=== PATIENT | male | born 1970 | race Caucasian/White ===

== ENCOUNTER 2017-03-07 10:33 | Emergency (ER) | payer BC ==
[2017-03-07 10:46] VITALS: BP 109/74
--- NOTE | 2017-03-07 12:20 | ED ---
Lower Extremity - HPI Summary HPI Summary: 46 male sent over from [facility] and presents with complaint of left calf pain x 1 week. Denies previous DVT but notes to left leg swelling x 1 year that is on and off however with no pain. An US was performed at that time and showed no evidence of DVT. Denies new leg swelling at this time but states he has pain in the medial side of the left calf. States he can feel a deformity. Pain kept him up last night. Took ibuprofen at 2am this morning, for the first time and symptoms improved significantly. Pain is not better or worse with standing. Patient is a non-smoker and is sedentary in his job. 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 Denies chest pain or pressure or SOB. Denies recent travel or immunocompromised state. He is otherwise healthy and takes no medications, no PMHx. No known recent trauma or injury. - History of Current Complaint Chief Complaint: EDExtremityLower Stated Complaint: LT LEG PAIN Time Seen by Provider: 03/07/17 10:49 Hx Obtained From: Patient Mechanism Of Injury: Unknown Onset of Pain: Days - 6 days ago Onset/Duration: Days Severity Initially: Moderate Severity Currently: Mild Pain Intensity: 4 Pain Scale Used: 0-10 Numeric Timing: Constant Location: Is Discrete @ - left lower medial calf Character Of Pain: Aching Associated Signs And Symptoms: Positive: Swelling, Other - warmth to area of medial calf where pain is located Aggravating Factor(s): Nothing Alleviating Factor(s): OTC Meds - ibuprofen Able to Bear Weight: Yes - Allergies/Home Medications Allergies/Adverse Reactions: Allergies Allergy/AdvReac Type Severity Reaction Status Date / Time No Known Allergies Allergy Verified 03/07/17 09:51 PMH/Surg Hx/FS Hx/Imm Hx Endocrine/Hematology History: Denies: Hx Diabetes Cardiovascular History: Denies: Hx Hypertension Respiratory History: Denies: Hx Asthma - Surgical History Surgery Procedure, Year, and Place: none - Immunization History Immunizations Up to Date: Yes Infectious Disease History: No Infectious Disease History: Denies: Traveled Outside the [place] in Last 30 Days - Family History Known Family History: Positive: None - mother possible DVT - Social History Alcohol Use: None Substance Use Type: Reports: None Smoking Status (MU): Never Smoked Tobacco Have You Smoked in the Last Year: No Review of Systems Constitutional: Negative Cardiovascular: Negative Respiratory: Negative Gastrointestinal: Negative Positive: Arthralgia, Myalgia, Edema - left lower leg Skin: Negative Neurological: Negative All Other Systems Reviewed And Are Negative: Yes Physical Exam Triage Information Reviewed: Yes Vital Signs On Initial Exam: Initial Vitals Temp Pulse Resp BP Pulse Ox 96.5 F 66 20 109/74 100 03/07/17 10:43 03/07/17 10:43 03/07/17 10:43 03/07/17 10:43 03/07/17 10:43 Vital Signs Reviewed: Yes Appearance: Positive: Well-Appearing, No Pain Distress, Well-Nourished Skin: Positive: Warm, Skin Color Reflects Adequate Perfusion, Dry, Other - hot to touch of left medial lower calf no erythema or ecchymosis noted. no obvious deformity. edema of left lower calf 40cm compared to right calf 38cm. no pitting edema. tender to palpation of medial lower calf. no open wounds or signs of infection Head/Face: Positive: Normal Head/Face Inspection Eyes: Positive: Normal ENT: Positive: Normal ENT inspection, Hearing grossly normal Neck: Positive: Supple, Nontender, No Lymphadenopathy Respiratory/Lung Sounds: Positive: Clear to Auscultation, Breath Sounds Present. Negative: Decreased Breath Sounds, Rales, Rhonchi, Stridor, Tracheal Deviation, Wheezes Cardiovascular: Positive: Normal, RRR, Pulses are Symmetrical in both Upper and Lower Extremities - 2+ pedal b/l, Leg Edema Left. Negative: Murmur, Rub, Leg Edema Right Abdomen Description: Positive: Nontender, Soft Bowel Sounds: Positive: Present Musculoskeletal: Positive: Normal, Strength/ROM Intact, Pain @ - left medial calf on palpation, Edema Left - 40cm on left calf compared to 38cm on right calf. no pitting edema, only edema of medial calf, Other - no crepitus, step off or bony tenderness. Negative: Limited @, Interruption @ Neurological: Positive: Normal, Sensory/Motor Intact - sensation intact and normal, Alert, Oriented to Person Place, Time, CN Intact II-III, Reflexes Intact , NV Bundle Intact Distally, Normal Gait Psychiatric: Positive: Normal AVPU Assessment: Alert Diagnostics - Vital Signs Vital Signs Temp Pulse Resp BP Pulse Ox 03/07/17 10:46 97.0 F 75 20 109/74 100 03/07/17 10:43 96.5 F 66 20 109/74 100 - Laboratory Lab Statement: Any lab studies that have been ordered have been reviewed, and results considered in the medical decision making process. - Ultrasound No standard instances Ultrasound Interpretation: Positive (See Comments) - Bilaterally the common femoral veins appear patent and compressible. Left proximal greater saphenous vein, proximal deep femoral vein, femoral vein, popliteal vein, posterior tibial veins and peroneal veins appear patent and compressible. There is thrombosis of the left greater saphenous vein in the calf likely representing superficial venous thrombosis Ultrasound Interpretation Completed By: Radiologist Lower Extremity Course/Dx - Course Course Of Treatment: patient took ibuprofen before arrival which gave him significant relief. U/S did show superficial thrombophlebitis of great saphenous vein. After research and speaking with Dr Gonsalves and patient about treatment for this condition it was decided to continue NSAIDs at this time as patient has limited risk factors for DVT. He is otherwise a healthy yan. Chronic lower leg edema requires a further work up. Will being NSAIDs treatment and follow up with his PCP to decide if antiocoagulants should be started and for repeat U/S and further work up for the cause of his condition. Patient was educated on worsening signs and symptoms extensively and to return if any occur or symptoms persist. Refrain from being sedentary, stretch and ambulate, elevate and cool compresses. Follow up PCP. - Diagnoses Differential Diagnosis/HQI/PQRI: Positive: Compartment Syndrome, Contusion, DVT , Sprain, Strain, Tendonitis, Tenosynovitis, Other Provider Diagnoses: Acute superficial venous thrombosis of left lower extremity - Physician Notifications Discussed Care Of Patient With: Dr Gonsalves about treatment options Discharge - Discharge Plan Condition: Stable Disposition: HOME Patient Education Materials: Superficial Thrombophlebitis (ED) Referrals: Rebecca Benites [Primary Care Provider] - Additional Instructions: Take ibuprofen 400-600mg every 4-6 hours with meals or Aspirin for the next 7 days and until seen by primary care provider. Elevate your leg, avoid being sedentary and apply warm or cool compresses. If symptoms worsen or do not improve please return to ED immediately, as your condition can worsen. Make an appointment for follow up and further work up with your family doctor within the next 3-5 days. I included more information for your condition below: What is superficial vein phlebitis/thrombosis? "Superficial vein phlebitis" and "superficial vein thrombosis" are medical terms for problems with the veins that are close to the surface of the skin (called the superficial veins): Superficial vein phlebitis is when the veins get inflamed. Superficial vein thrombosis is when blood clots form in the veins. If both problems happen, it is called "superficial vein thrombophlebitis." Superficial vein phlebitis/thrombosis is related to another vein problem called "deep vein thrombosis" or "DVT." DVT is when a vein located deep between the muscles gets inflamed or becomes clotted. DVT can be very dangerous because clots within a deep vein can break off and travel to the lungs, causing something called a "pulmonary embolism." Again, superficial vein phlebitis/thrombosis affects veins near the surface of the skin. DVT affects veins deep in the muscle. Is superficial vein phlebitis/thrombosis dangerous? Superficial vein phlebitis is not usually dangerous. But with superficial vein thrombosis, clots in a superficial vein can extend into a deep vein causing DVT, or break off, causing pulmonary embolism. For these reasons, superficial vein thrombosis is taken very seriously, especially when it affects the thigh or upper arm, where superficial and deep veins meet. How does superficial vein phlebitis/thrombosis relate to other vein problems? People who get superficial vein phlebitis/thrombosis often also have a type of vein disease called "venous insufficiency." Venous insufficiency can occur with or without varicose veins (twisted, swollen veins), and most often affects the legs. When the veins are healthy and working normally, they carry blood in only 1 direction, from the arms and legs back to the heart. Veins have valves inside them to keep blood moving toward the heart. The valves open to let blood flow to the heart, and close to keep blood from flowing backwards. When the valves are damaged or do not work well, blood flows backward and collects in the veins. This is called venous insufficiency. People without venous insufficiency can also get superficial vein phlebitis/ thrombosis. This usually happens after having an intravenous catheter, which is a tube that goes into a vein to give medicines. But even people who had nothing put into a vein can get superficial vein phlebitis/thrombosis. For instance, it can happen to people with blood clotting problems or cancer. What are the symptoms of superficial vein phlebitis/thrombosis? The symptoms include: Pain, tenderness, or redness along the length of a vein Hardening of the vein Fever Fluid draining from the area where a catheter was put in Swelling of the affected arm or leg Should I see a doctor or nurse? Yes, if you have symptoms of superficial vein phlebitis/thrombosis, see your doctor or nurse. See him or her right away if the affected arm or leg is swollen, or if the affected vein is in the thigh or upper arm. Call for an ambulance (in the [place] and [place], dial [id number]) if you get symptoms of a blood clot in the lungs, such as: Panting or trouble breathing Sharp, knife-like chest pain when you breathe in Coughing or coughing up blood A rapid heartbeat Will I need tests? Maybe. Your doctor or nurse might be able to tell what is happening by doing an exam and learning about your symptoms. He or she might also do a test called an ultrasound. An ultrasound will show if any of the veins are blocked, especially the deep veins. It can also check how well the valves in the veins work. In some cases, your doctor might order blood tests. How is superficial vein phlebitis/thrombosis treated? The treatment for superficial vein phlebitis/thrombosis focuses on easing the symptoms. To do this , doctors recommend that you: Use heating or cooling pads on the affected area Raise the arm or leg, propping it up on pillows or a chair when resting Take a medicine called an NSAID Examples include ibuprofen (sample brand names : Advil, Motrin) and naproxen (sample brand names: Aleve, Naprosyn) If your superficial vein phlebitis/thrombosis is near where you have (or had) an intravenous catheter, your doctor will check for infection. If you do have an infection, you might need antibiotics. If superficial vein phlebitis/thrombosis is in your leg, your doctor or nurse might also suggest you wear compression stockings. These are special socks that fit tightly over the ankle and leg. If your doctor or nurse recommends them, he or she will tell you which type to wear and how to put them on. Some people do not need treatment beyond that described above. In some cases where superficial vein thrombosis is near the deep veins, though, your doctors will prescribe a medicine to prevent more clots from forming. Can superficial vein phlebitis/thrombosis be prevented? You can reduce your chances of getting superficial vein phlebitis/thrombosis in the leg veins by staying active and not sitting too long without moving.
--- NOTE | 2017-03-07 13:03 | RAD ---
Indication: Left leg edema. Duplex Doppler sonography of the deep venous system of the left lower extremity deep venous system was performed. Bilaterally the common femoral veins appear patent and compressible. Left proximal greater saphenous vein, proximal deep femoral vein, femoral vein, popliteal vein, posterior tibial veins and peroneal veins appear patent and compressible. There is thrombosis of the left greater saphenous vein in the calf likely representing superficial venous thrombosis IMPRESSION: NO EVIDENCE OF DEEP VENOUS THROMBOSIS IS IDENTIFIED. THROMBOSIS OF THE GREATER SAPHENOUS VEIN IN THE CALF. THIS IS CONSISTENT WITH SUPERFICIAL VENOUS THROMBOSIS.
== END 2017-03-07 13:38 | disposition home or self-care (01) ==
LOC: ED 10:33
DX: I82.812 Embolism and thrombosis of superficial veins of left lower extremity (principal); M79.605 Pain in left leg
CPT/HCPCS: 99282

== ENCOUNTER 2018-04-19 17:18 | Emergency (ER) | payer BC ==
[2018-04-19 17:27] VITALS: BP 136/89
--- NOTE | 2018-04-19 18:10 | UC ---
Skin Complaint HPI - HPI Summary HPI Summary: This is pablito Edmond documenting for attending Sera Hastings MD. This patient is a 47 year old M presenting to [facility] with a chief complaint of red rash on abdomen since 7 days ago. The patient reports that the rash is itchy and has been spreading. 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 Pt has a patch on right hip which is bigger and has been itching x 5 days. Pt states itching worse when he gets warm. The patient rates the pain 0/10 in severity. Symptoms aggravated by nothing. Symptoms alleviated by nothing. Patient denies fever, nausea or chills. The patient denies taking any medications. - History of Current Complaint Chief Complaint: UCRash Time Seen by Provider: 04/19/18 18:03 Stated Complaint: RASH Hx Obtained From: Patient Onset/Duration: Gradual Onset, Lasting Days - 7 days, Still Present, Worse Since - a few days ago Skin Exposure Onset/Duration: Days Ago Timing: Constant Current Severity: None Pain Intensity: 0 Pain Scale Used: 0-10 Numeric Location: Other - abdomen Character: Pruritus, Redness, Raised Aggravating Factor(s): Nothing Alleviating Factor(s): Nothing Associated Signs & Symptoms: Positive: Rash. Negative: Nausea, Fever, Chills Related History: Possible Reaction to: Environmental Exposure - Allergy/Home Medications Allergies/Adverse Reactions: Allergies Allergy/AdvReac Type Severity Reaction Status Date / Time amoxicillin Allergy Intermediate nausea Verified 04/19/18 17:27 vomitting Review of Systems Constitutional: Negative Skin: Rash - on abdomen Respiratory: Negative - negative shortness of breath Gastrointestinal: Negative - negative nausea All Other Systems Reviewed And Are Negative: Yes PMH/Surg Hx/FS Hx/Imm Hx Previously Healthy: Yes - Surgical History Surgical History: None Surgery Procedure, Year, and Place: none - Family History Known Family History: Positive: Diabetes - grandmother, Other - mother possible DVT - Social History Occupation: Employed Full-time - mows grass at [employer] Alcohol Use: None Substance Use Type: None Smoking Status (MU): Never Smoked Tobacco Have You Smoked in the Last Year: No Physical Exam - Summary Physical Exam Summary: Vital Signs Reviewed: Yes A+Ox3, no distress Eyes: Conjunctiva Clear ENT: Hearing grossly normal neck: supple Respiratory: Positive: No respiratory distress, No accessory muscle use Cardiovascular: skin color reflect adequate perfusion Musculoskeletal Exam: SEVERINO x 4 without difficulty Neurological: Positive: Alert, ambulatory without difficulty Psychological: Positive: Normal Response To Family Skin: Positive: no ecchymosis Pt with multiple raised, mild erythema inflammed follicles across abdomen, under panus (appears c/w prickly heat rash) On right lower abd pt with 3x2cm patch of erythema warm, raised, appears pruritic Triage Information Reviewed: Yes Vital Signs: Initial Vital Signs Temp 97.5 F 04/19/18 17:23 Pulse 74 04/19/18 17:23 Resp 18 04/19/18 17:23 BP 136/89 04/19/18 17:23 Pulse Ox 100 04/19/18 17:23 Course/Dx - Course Course Of Treatment: Pt with inflammed follicular appearing rash across abd, panus worse with heat, itching. patch o nright lower abd appears early cellulitis. Will Rx abx, pred. cool soaks. benadryl with precautions. return precautioins discussed - Diagnoses Provider Diagnoses: cellulitis. heat rash Discharge - Sign-Out/Discharge Documenting (check all that apply): Patient Departure - Discharge Plan Condition: Stable Disposition: HOME Prescriptions: DOXYcycline CAP(*) [DOXYcycline 100MG CAP(*)] 100 mg PO BID #14 cap predniSONE TAB* [Deltasone TAB*] 50 mg PO DAILY #5 tab Patient Education Materials: Cellulitis (ED), Acute Rash (ED) Referrals: Rebecca Benites [Primary Care Provider] - Additional Instructions: The doctor that evaluated using suture rashes likely due to heat. The red raised area by a right hip however is concerning for a local area of infection. Recommendations as follows: - Take antibiotics as prescribed until gone - Avoid getting overheated. Take lukewarm showers, use cool cloth to help with itching. - Okay to take Benadryl as needed for itching. This medication causes sleepiness. Do not drive, operate equipment, or drink alcohol while taking it - Make sure to put on clean dry shirt after mowing lawn and sweating - Take prednisone as prescribed until gone - Contact her doctor to schedule follow-up appointment. Contact your doctor or return with any questions or concerns. - Billing Disposition and Condition Condition: STABLE Disposition: Home
== END 2018-04-19 18:20 | disposition home or self-care (01) ==
LOC: UCEAST 17:18
DX: L03.311 Cellulitis of abdominal wall (principal); L74.0 Miliaria rubra; Z88.0 Allergy status to penicillin; Z83.3 Family history of diabetes mellitus
CPT/HCPCS: 99212; G0463